=== PATIENT | female | born 1960 | race African-American/Black ===

== ENCOUNTER 2017-02-21 18:10 | Emergency (ER) | payer OTHER ==
[~2017-02-21] VITALS: Ht 172.7 cm; Wt 93.0 kg
[2017-02-21] MEDS ORDERED: KETOROLAC 60MG/2ML VIAL IM ONE (22:15)
[2017-02-22] MEDS ORDERED: HYDROCODONE/ACETAMINOPHEN 5/325MG TABLET PO ONE (00:45)
[2017-02-22] MEDS ORDERED: CYCLOBENZAPRINE 10MG TABLET PO ONE (01:15)
[2017-02-22 01:45] VITALS: BP 133/68
== END 2017-02-22 02:20 | disposition home or self-care (01) ==
LOC: ER 18:10
DX: S52.122A Displaced fracture of head of left radius, initial encounter for closed fracture (principal); M25.562 Pain in left knee; M25.512 Pain in left shoulder; M25.532 Pain in left wrist; M25.552 Pain in left hip; V09.9XXA Pedestrian injured in unspecified transport accident, initial encounter; Y93.01 Activity, walking, marching and hiking; Y92.89 Other specified places as the place of occurrence of the external cause; Y99.8 Other external cause status; Z88.6 Allergy status to analgesic agent
CPT/HCPCS: 29505; 73030; 73080; 73110; 73502; 73562; 96372; 99284; J1885; Z7610